=== PATIENT | male | born 1945 | race Caucasian/White ===

== ENCOUNTER 2017-10-12 10:12 | Outpatient (CLI) | payer MEDICARE ==
--- NOTE | 2017-10-12 11:32 | XRAY Report ---
Procedure Date: 10/12/2017 Accession Number: [id number] / [id number] Procedure: XR - Chest 2 View X-Ray CPT Code: 25683 FULL RESULT: EXAM: CHEST RADIOGRAPHY EXAM DATE: 10/12/2017 10:26 AM. CLINICAL HISTORY: EXERTIONAL DYSPNEA. COMPARISON: None. TECHNIQUE: 2 views. FINDINGS: Lungs/Pleura: No focal opacities evident. No pleural effusion. No pneumothorax. Normal volumes. Mediastinum: Heart and mediastinal contours are unremarkable. Other: None. IMPRESSION: No acute intrathoracic plain film abnormality. RADIA
== END 2017-10-12 10:13 | disposition home or self-care (01) ==
LOC: DI 10:12
PROVIDERS: ATTEND Family Medicine Sports Medicine
DX: R06.00 Dyspnea, unspecified (principal)
CPT/HCPCS: 71046

== ENCOUNTER 2022-10-10 16:28 | Emergency (ER) | payer OTHER, MEDICARE ==
--- NOTE | 2022-10-10 16:45 | ED Physician Documentation ---
History of Present Illness - Stated complaint Stated Complaint: RT LEG LAC - Chief complaint Chief Complaint: Laceration - History obtained from History obtained from: Patient - History of Present Illness Timing: How many days ago (3) Pain level max: 0 Pain level now: 0 - Additonal information Additional information: 77-year-old male presents to the emergency department stating that he has an abrasion to the right calf that occurred 3 days ago on a kameron metal sign. He does not know when his last tetanus shot was and would like to have a tetanus shot today. No redness, no swelling, no drainage. Patient is asymptomatic. Review of Systems Constitutional: denies: Fever GI: denies: Vomiting PD PAST MEDICAL HISTORY - Past Medical History Cardiovascular: None Respiratory: None Endocrine/Autoimmune: None GI: None : None HEENT: None Psych: None Musculoskeletal: None Derm: None - Past Surgical History Past Surgical History: No - Present Medications Home Medications: Ambulatory Orders Medication Instructions Recorded Confirmed Aspirin 81 mg PO DAILY 11/28/14 11/28/14 Levothyroxine Sodium [Levoxyl] 50 mcg 11/28/14 11/28/14 Losartan [Cozaar] 100 mg PO DAILY 11/28/14 11/28/14 Oxycodone HCl/Acetaminophen 1 each PO Q6H PRN #20 tablet 11/28/14 [Percocet 5-325 mg Tablet] Simvastatin 40 mg PO DAILY 11/28/14 11/28/14 Zolpidem [Ambien] 11/28/14 11/28/14 diphenhydrAMINE HCl [Benadryl] 11/28/14 11/28/14 methocarbamoL [Robaxin] 500 mg PO Q6H PRN #25 tablet 11/28/14 predniSONE [Deltasone] 40 mg PO DAILY 5 Days tablet 11/28/14 diazePAM [Valium] 5 - 10 mg PO TID PRN #15 tablet 11/30/14 - Allergies Allergies/Adverse Reactions: Allergies Allergy/AdvReac Type Severity Reaction Status Date / Time amoxicillin Allergy Unknown Verified 10/10/22 16:38 - Social History Does the pt smoke?: No Smoking Status: Never smoker Does the pt drink ETOH?: Yes Does the pt have substance abuse?: No PD ED PE NORMAL - Vitals Vital signs reviewed: Yes - General General: Alert and oriented X 3, No acute distress - HEENT HEENT: Moist mucous membranes - Derm Derm: Warm and dry - Extremities Extremities: Other (abrasion to the R calf, no signs of infection.) - Neuro Neuro: Alert and oriented X 3 - Psych Psych: Normal mood, Normal affect Results - Vitals Vitals: Vital Signs - 24 hr 10/10/22 16:36 Temperature 36.4 C L Heart Rate 85 Respiratory 16 Rate Blood Pressure 134/93 H O2 Saturation 96 Oxygen O2 Source Room air PD Medical Decision Making - ED course Complexity details: considered differential, d/w patient ED course: 77-year-old male with an abrasion to the leg. Last tetanus shot was 2015 and he is requesting an update, I think this is reasonable given the kameron metal sign. Tetanus shot given. No signs of infection. No indication for wound care. Patient counseled regarding signs and symptoms for which I believe and urgent re-evaluation would be necessary. Patient with good understanding of and agreement to plan and is comfortable going home at this time This document was made in part using voice recognition software. While efforts are made to proofread this document, sound alike and grammatical errors may occur. Departure - Departure Disposition: 01 Home, Self Care Clinical Impression: Abrasion Condition: Good Instructions: ED Abrasion Follow-Up: Cuco Daniels DO [Primary Care Provider] - As Needed Comments: You were given a tetanus shot today. Please return if you notice redness, swelling or drainage from the wound. Forms: PCP List
[2022-10-10] MEDS ORDERED: TETANUS/DIPHTHERIA/PERTUSSIS 0.5 ML SYRINGE IM ONE (16:48)
[2022-10-10 16:51] VITALS: BP 134/93; O2SAT 96
== END 2022-10-10 16:56 | disposition home or self-care (01) ==
LOC: ED 16:28
DX: S80.811A Abrasion, right lower leg, initial encounter (principal); X58.XXXA Exposure to other specified factors, initial encounter
CPT/HCPCS: 90471; 99283